=== PATIENT | female | born 1980 | race Two or more races ===

== ENCOUNTER → 2022-08-05 | Emergency (ER) | payer OTHER ==
[~2022-08-05] VITALS: Ht 157.5 cm; Wt 79.4 kg
== END | disposition left against medical advice (07) ==
LOC: ER 19:39
DX: R10.2 Pelvic and perineal pain (principal); N94.19 Other specified dyspareunia; R22.9 Localized swelling, mass and lump, unspecified; Z85.41 Personal history of malignant neoplasm of cervix uteri